=== PATIENT | male | born 1970 | race Native Hawaiian/Other Pacific Islander ===

== ENCOUNTER 2016-08-17 16:04 | Emergency (ER) | payer MEDICAID, OTHER ==
[2016-08-17 16:37] VITALS: RESP 18; TEMP 98.2; O2SAT 98
--- NOTE | 2016-08-17 17:06 | C.PDOC ---
History Of Present Illness Pt c/o atraumatic right foot pain. Time Seen by Provider: 08/17/16 16:49 Chief Complaint (Nursing): Lower Extremity Problem/Injury History Per: Patient Onset/Duration Of Symptoms: Hrs (today) Current Symptoms Are (Timing): Still Present Severity: Moderate Additional History Per: Prior Records - Ankle/Foot Feet: 1 - pain Past Medical History Reviewed: Historical Data, Nursing Documentation, Vital Signs Vital Signs: Last Vital Signs Temp 98.2 F 08/17/16 16:30 Pulse 90 08/17/16 18:11 Resp 18 08/17/16 18:11 BP 167/109 H 08/17/16 18:11 Pulse Ox 98 08/17/16 18:11 - Medical History PMH: HTN (not on any medications) Family History: States: Unknown Family Hx - Social History Hx Tobacco Use: Yes Hx Alcohol Use: Yes Hx Substance Use: No - Immunization History Hx Tetanus Toxoid Vaccination: No Hx Influenza Vaccination: No Hx Pneumococcal Vaccination: No Review Of Systems Except As Marked, All Systems Reviewed And Found Negative. Constitutional: Negative for: Fever, Weakness Cardiovascular: Negative for: Chest Pain Respiratory: Negative for: Shortness of Breath Gastrointestinal: Negative for: Vomiting, Abdominal Pain Musculoskeletal: Positive for: Foot Pain (right). Negative for: Neck Pain, Back Pain, Leg Pain Skin: Negative for: Rash Neurological: Negative for: Weakness, Numbness, Seizures, Altered Mental Status , Headache, Dizziness Physical Exam - Physical Exam Appears: Non-toxic, No Acute Distress Skin: Normal Color, Warm, Dry, No Rash Head: Atraumatic, Normacephalic Eye(s): bilateral: PERRL, EOMI Neck: Normal ROM, Supple Cardiovascular: Rhythm Regular Respiratory: Normal Breath Sounds, No Accessory Muscle Use Gastrointestinal/Abdominal: Soft, No Tenderness Back: No CVA Tenderness Extremity: Normal ROM, Tenderness (lateral aspect of dorsum of right foot. ), No Calf Tenderness, Capillary Refill (wnl), No Deformity Pulses: Left Dorsalis Pedis: Normal Neurological/Psych: Oriented x3, Normal Motor, Normal Sensation ED Course And Treatment O2 Sat by Pulse Oximetry: 98 Pulse Ox Interpretation: Normal Progress Note: TAMMIE wrap was applied to right foot. Medical Decision Making Medical Decision Making: Pt was found to be hypertensive. Will start pt on HCTZ and f/up in the clinic/ pmd. Disposition Counseled Patient/Family Regarding: Diagnosis, Need For Followup, Rx Given, Smoking Cessation - Disposition Referrals: [facility] at [facility] [Outside] Disposition: HOME/ ROUTINE Disposition Time: 18:16 Condition: IMPROVED Additional Instructions: Follow up with your doctor or in the clinic within 1-2 weeks for further evaluation and treatment. Return to the ER if you develop redness, swelling, chest pain, shortness of breath, worsening of symptoms or if you have any other concerns. Prescriptions: hydroCHLOROthiazide [Hydrodiuril] 25 mg PO DAILY #30 tab Naproxen [Naprosyn] 1 tab PO BID PRN #20 tab PRN Reason: Pain Instructions: Hypertension (ED) - Clinical Impression Clinical Impression: Right foot pain, Hypertension
[2016-08-17] MEDS ORDERED: Naproxen 550 mg Tab PO STA (17:12)
[2016-08-17] MEDS ORDERED: Naproxen 550 mg Tab PO ONE (17:25)
[2016-08-17 18:12] VITALS: BP 167/109; PULSE 90
== END 2016-08-17 18:24 | disposition home or self-care (01) ==
LOC: C.ER 16:04
DX: M79.671 Pain in right foot (principal); I10 Essential (primary) hypertension

== ENCOUNTER 2016-10-06 | Emergency (ER) | payer MEDICAID, OTHER ==
[2016-10-06 00:11] VITALS: O2SAT 100
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
[2016-10-06 01:23] VITALS: PULSE 90
[2016-10-06 01:49] VITALS: BP 152/90; RESP 20; TEMP 98.2
== END 2016-10-06 02:07 | disposition home or self-care (01) ==
LOC: SUPCPDRO → C.ER
DX: F41.9 Anxiety disorder, unspecified (principal); I10 Essential (primary) hypertension

== ENCOUNTER 2017-09-27 20:30 | Emergency (ER) | payer SELFPAY ==
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
[2017-09-27] MEDS ORDERED: Aluminum Hydroxide/Magnesium Hydroxide Susp (30 mL) PO STA (22:16)
[2017-09-27] MEDS ORDERED: Lactated Ringer's 1,000 ML IV STA (22:16)
[2017-09-27] MEDS ORDERED: Alum-Mag Hydrox-Simethicone Susp (30 mL) ONE (22:43)
[2017-09-27 23:09] LABS: BASO # 0.1 K/uL (0.0-0.2); EOS # 0.3 K/uL (0.0-0.7); EOS % 3.6 % (0.0-4.0); HEMOGLOBIN 14.7 g/dL (12.0-18.0); LYMPH # 2.4 K/uL (1.0-4.3); LYMPH % 30.2 % (20.0-40.0); MEAN CELL VOLUME 85.9 fL (80.0-94.0); MEAN CORPUSCULAR HEMOGLOBIN 29.4 pg (27.0-31.0); MEAN CORPUSCULAR HGB CONC 34.2 g/dL (33.0-37.0); MEAN PLATELET VOLUME 8.1 fL (7.2-11.7); MONO # 0.8 K/uL (0.0-0.8); MONO % 9.9 % (0.0-10.0); NEUT # 4.5 K/uL (1.8-7.0); NEUT % 55.3 % (50.0-75.0); RED CELL DISTRIBUTION WIDTH 13.9 % (11.5-14.5); WHITE BLOOD COUNT 8.1 K/uL (4.8-10.8)
[2017-09-27 23:21] LABS: ALB/GLOB RATIO 1.1 (1.0-2.1); ALBUMIN 3.6 g/dL (3.5-5.0); ALT/SGPT 65 U/L (21-72); AST/SGOT 45 U/L (17-59); BLOOD UREA NITROGEN 15 mg/dL (9-20); CALCIUM 8.3 mg/dl (8.6-10.4); GFR AFRICAN-AMERICAN > 60; GFR NON-AFRICAN AMERICAN > 60; LIPASE 375 U/L (23-300)
[2017-09-28 00:25] VITALS: BP 118/82; PULSE 88; RESP 20; TEMP 98.1
--- NOTE | 2017-09-28 08:18 | RAD ---
HISTORY: abd pain COMPARISON: No prior. TECHNIQUE: Chest PA and lateral FINDINGS: LUNGS: No active pulmonary disease. PLEURA: No significant pleural effusion identified. No pneumothorax apparent. CARDIOVASCULAR: Normal. OSSEOUS STRUCTURES: No significant abnormalities. VISUALIZED UPPER ABDOMEN: Normal. OTHER FINDINGS: None. IMPRESSION: No active disease.
[2017-10-02 21:02] VITALS: O2SAT 98
== END 2017-09-27 23:55 | disposition home or self-care (01) ==
LOC: C.ER 20:30
DX: R10.9 Unspecified abdominal pain (principal); I10 Essential (primary) hypertension; F41.9 Anxiety disorder, unspecified; F17.210 Nicotine dependence, cigarettes, uncomplicated

== ENCOUNTER 2017-12-17 19:01 | Emergency (ER) | payer MEDICAID, SELFPAY ==
[2017-12-17 19:01] VITALS: BMI 24.3
[2017-12-17 19:15] VITALS: BP 151/97; PULSE 98; TEMP 99.3; O2SAT 100
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
[2017-12-17 19:59] VITALS: RESP 16
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
== END 2017-12-17 19:58 | disposition home or self-care (01) ==
LOC: C.ER 19:01
DX: S80.01XA Contusion of right knee, initial encounter (principal); Y08.89XA Assault by other specified means, initial encounter